=== PATIENT | female | born 1980 | race Two or more races ===

== ENCOUNTER 2018-08-04 11:07 | Outpatient (CLI) | payer OTHER | END 2018-08-04 11:27 | disposition home or self-care (01) | LOC: RAD 11:07 | DX: M48.02 Spinal stenosis, cervical region (principal) ==

== ENCOUNTER 2018-11-16 13:44 | Outpatient (CLI) | payer OTHER | END 2018-11-16 17:00 | disposition home or self-care (01) | LOC: RAD 13:44 | DX: M48.02 Spinal stenosis, cervical region (principal) ==

== ENCOUNTER 2019-06-02 11:30 | Outpatient (CLI) | payer OTHER | END 2019-06-02 11:39 | disposition home or self-care (01) | LOC: RAD 11:30 | DX: M48.02 Spinal stenosis, cervical region (principal) ==

== ENCOUNTER 2020-06-10 14:59 | Outpatient (CLI) | payer OTHER | END 2020-06-10 15:10 | disposition home or self-care (01) | LOC: RAD 14:59 | PROVIDERS: ATTEND Neurological Surgery | DX: M48.02 Spinal stenosis, cervical region (principal) ==

== ENCOUNTER 2021-03-24 07:09 | Outpatient (CLI) | payer OTHER | END 2021-03-24 07:15 | disposition home or self-care (01) | LOC: RAD 07:09 | PROVIDERS: ATTEND Specialist | DX: M54.2 Cervicalgia (principal); M36.8 Systemic disorders of connective tissue in other diseases classified elsewhere; M25.512 Pain in left shoulder; M75.92 Shoulder lesion, unspecified, left shoulder ==

== ENCOUNTER 2023-06-16 14:45 | Outpatient (CLI) | payer OTHER | END 2023-06-16 14:59 | disposition home or self-care (01) | LOC: RAD 14:45 | PROVIDERS: ATTEND Chiropractor | DX: M77.00 Medial epicondylitis, unspecified elbow (principal) ==

== ENCOUNTER 2023-08-11 14:32 | Outpatient (CLI) | payer OTHER | END 2023-08-11 14:44 | disposition home or self-care (01) | LOC: RAD 14:32 | PROVIDERS: ATTEND Chiropractor | DX: M54.2 Cervicalgia (principal); M54.17 Radiculopathy, lumbosacral region; M53.3 Sacrococcygeal disorders, not elsewhere classified; M54.9 Dorsalgia, unspecified ==